=== PATIENT | male | born 1950 | race Caucasian/White ===

== ENCOUNTER 2016-10-26 23:05 | Emergency (ER) | payer BC ==
[2016-10-26 23:41] VITALS: BP 148/78
--- NOTE | 2016-10-28 07:42 | CR ---
DATE OF SERVICE: 10/26/16 CLINICAL DATA: Irregular heart beat. PA CHEST: Comparison is made to a prior exam dated 02/03/14. The heart size is normal. The lungs are clear. No pneumothorax. No pleural effusions. No areas of consolidation. IMPRESSION: No evidence of acute intrathoracic disease. [id number] [facility]
--- NOTE | 2016-11-08 01:43 | ER ---
HISTORY OF PRESENT ILLNESS: A 66-year-old male who comes to the emergency room with his with complaints of irregular heartbeat that he noticed just earlier today. The patient has not had any problems with chest pain, chest pressure, he does not feel sick. He has not been running a fever. He has no history of nausea. The patient states that he decided to come in for evaluation. He does have a history of coronary artery disease. He has history of stents being placed in the past and there is family history of coronary artery disease as well. The patient states that he has been active today and has not had any problems. OBJECTIVE: GENERAL APPEARANCE: The patient is awake and alert. No obvious distress. VITAL SIGNS: Reviewed. Blood pressure 148/78, he is afebrile, respirations are 16. HEENT: Ears, TMs are normal. Nares are patent. Oral mucous membranes are moist. Tonsils are not enlarged or injected. Pharynx not inflamed. NECK: Supple. LUNGS: Clear. CARDIAC: Heart sounds distinct, roughly every third beat, it seems to be dropped or irregular. There are no murmurs. ABDOMEN: Soft, nontender to palpation. SKIN: Warm and dry. LAB AND X-RAY: An EKG was obtained showing frequent PVCs. We compared this with previous EKGs and this is chronic in nature. Lab work including a CBC, comprehensive metabolic panel, and troponin are negative. Chest x-ray is normal. TREATMENT PLAN: I advised the patient to go home, continue with activity as tolerated. He should be taking a baby aspirin every day. His vital signs are good. If his symptoms do not resolve within the next few days further evaluation with his regular provider would be a good idea, recheck should be within a few days. The patient agrees with the treatment plan and has no further questions. DIAGNOSIS: Irregular heartbeat, chronic in nature. CRS/MODL /[id number]
== END 2016-10-27 00:25 | disposition home or self-care (01) ==
LOC: LB.ED 23:05
DX: I49.9 Cardiac arrhythmia, unspecified (principal)
CPT/HCPCS: 36415; 71010; 80053; 84484; 85025; 93005; 99285-25

== ENCOUNTER 2017-11-17 11:32 | Emergency (ER) | payer MEDICARE, BC ==
[2017-11-17] MEDS: Sodium Chloride 0.9% 10 ML Syringe FLUSH PRN (11:40)
[2017-11-17] MEDS: Aspirin 81 MG Tab.Chew PO ONE (11:47)
--- NOTE | 2017-11-17 11:58 | EDM.PDOC ---
ED HPI GENERAL MEDICAL PROBLEM - General Chief Complaint: Chest Pain Stated Complaint: chest pressure Time Seen by Provider: 11/17/17 11:45 Source of Information: Reports: Patient, RN - History of Present Illness INITIAL COMMENTS - FREE TEXT/NARRATIVE: 67 yr male presents with midsternal chest pain, started last night. States about 1 week ago was started on Metoprolol. States some chest pain last weekend too, when out of town at volleyball game. States some history of GI distress and did take an Omeprazole today. States pain is some better. States pain last night and didn't sleep well. Mid-Sternal Chest Pain Score (Numeric/FACES): 3 - Related Data Allergies Allergy/AdvReac Type Severity Reaction Status Date / Time No Known Allergies Allergy Verified 10/26/16 23:38 Home Meds: Home Meds Aspirin [Adult Low Dose Aspirin EC] 81 mg PO DAILY 02/03/14 [History] atorvaSTATin [Lipitor] 20 mg PO BEDTIME 02/03/14 [History] Metoprolol Succinate [Toprol XL] 25 mg PO DAILY 11/17/17 [History] Omeprazole Magnesium [Prilosec Otc] 20 mg PO DAILY #30 tablet. 11/17/17 [Rx] Past Medical History Cardiovascular History: Reports: CAD, High Cholesterol, Stents - Infectious Disease History Infectious Disease History: Reports: Chicken Pox - Past Surgical History Musculoskeletal Surgical History: Reports: Shoulder Surgery, Other (See Below) Social & Family History - Family History Family Medical History: Noncontributory - Tobacco Use Smoking Status *Q: Never Smoker Years of Tobacco use: 40 Used Tobacco, but Quit: Yes Month/Year Tobacco Last Used: 2011 Second Hand Smoke Exposure: No - Caffeine Use Caffeine Use: Reports: Soda, Tea - Alcohol Use Days Per Week of Alcohol Use: 0 - Recreational Drug Use Recreational Drug Use: No ED ROS GENERAL - Review of Systems Review Of Systems: See Below Constitutional: Reports: No Symptoms. Denies: Fever, Chills HEENT: Reports: No Symptoms. Denies: Vision Change Respiratory: Reports: Shortness of Breath Cardiovascular: Reports: Chest Pain. Denies: Dyspnea on Exertion, Edema GI/Abdominal: Reports: No Symptoms. Denies: Abdominal Pain Musculoskeletal: Reports: No Symptoms. Denies: Arm Pain, Back Pain Skin: Reports: No Symptoms Neurological: Reports: No Symptoms Psychiatric: Reports: No Symptoms ED EXAM, GENERAL - Physical Exam Exam: See Below Exam Limited By: No Limitations General Appearance: Alert, No Apparent Distress Nose: Normal Inspection Throat/Mouth: Normal Inspection, Normal Lips, No Airway Compromise Head: Atraumatic, Normocephalic Neck: Normal Inspection, Supple, Non-Tender Respiratory/Chest: No Respiratory Distress, Lungs Clear, Normal Breath Sounds Cardiovascular: Regular Rate, Rhythm, No Edema Peripheral Pulses: 2+: Radial (L), Radial (R) GI/Abdominal: Normal Bowel Sounds, Soft, Non-Tender, No Distention. No: Distended, Tender Extremities: Normal Inspection, Non-Tender, No Pedal Edema Neurological: Alert, Oriented, Normal Cognition Psychiatric: Normal Affect, Normal Mood Skin Exam: Warm, Dry, Normal Color Lymphatic: No Adenopathy Course - Vital Signs Last Recorded V/S: Last Vital Signs Temp 97.4 F 11/17/17 11:32 Pulse 54 L 11/17/17 12:19 Resp 18 11/17/17 12:19 BP 149/81 H 11/17/17 12:19 Pulse Ox 97 11/17/17 12:19 - Orders/Labs/Meds Orders: Active Orders 24 hr Category Date Time Status Cardiac Monitoring [RC] .As Directed Care 11/17/17 11:51 Active EKG Documentation Completion [RC] ASDIRECTED Care 11/17/17 11:52 Active Saline Lock Insert [OM.PC] Stat Oth 11/17/17 11:50 Ordered Labs: Laboratory Tests 11/17/17 11/17/17 Range/Units 11:50 11:50 WBC 6.5 (4.0-11.0) K/uL RBC 4.50 (4.50-6.50) M/uL Hgb 12.8 L (13.0-18.0) g/dL Hct 38.0 L (40.0-54.0) % MCV 84 (76-96) fL MCH 28.4 (27.0-32.0) pg MCHC 33.7 (31.0-35.0) g/dL RDW 13.2 (11.0-16.0) % Plt Count 164 D (150-400) K/uL MPV 10.9 H (6.0-10.0) fL Neut % (Auto) 63.0 (45.0-70.0) % Lymph % (Auto) 26.5 (20.0-40.0) % Otoe % (Auto) 8.0 (3.0-10.0) % Eos % (Auto) 2.0 (1.0-5.0) % Baso % (Auto) 0.5 (0.0-0.5) % Neut # (Auto) 4.07 (2.00-7.50) K/uL Lymph # (Auto) 1.71 (1.50-4.00) K/uL O[place]e # (Auto) 0.52 (0.20-0.80) K/uL Eos # (Auto) 0.13 (0.04-0.40) K/uL Baso # (Auto) 0.03 (0.02-0.10) K/uL Sodium 141 (136-145) mmol/L Potassium 3.7 (3.5-5.1) mmol/L Chloride 104 (98-107) mmol/L Carbon Dioxide 23.8 (21.0-32.0) mmol/L Anion Gap 16.9 H (5.0-15.0) mmol/L BUN 18 (8-26) mg/dL Creatinine 0.97 (0.70-1.30) mg/dL Est Cr Clr Drug Dosing 83.33 mL/min Estimated GFR (MDRD) > 60 (>60) MLS/MIN BUN/Creatinine Ratio 18.6 (6-25) Glucose 101 H (74-100) mg/dL Calcium 9.1 (8.5-10.1) mg/dL Total Bilirubin 0.6 D (0.0-1.0) mg/dL AST 20 (15-37) U/L ALT 35 (12-78) U/L Alkaline Phosphatase 61 (46-116) U/L Troponin I < 0.017 (0.000-0.060) ng/mL Total Protein 7.9 (6.4-8.2) g/dL Albumin 4.0 (3.4-5.0) g/dL Globulin 3.9 (2.2-4.2) g/dL Albumin/Globulin Ratio 1.0 (0.8-2.0) Meds: Medications Discontinued Medications Generic Name Dose Route Start Last Admin Trade Name Freq PRN Reason Stop Dose Admin Aspirin 324 mg 11/17/17 11:50 11/17/17 11:47 Aspirin PO 11/17/17 11:51 324 mg ONETIME ONE Administration Sodium Chloride 10 ml 11/17/17 11:50 11/17/17 11:40 Saline Flush FLUSH 10 ml ASDIRECTED PRN Administration Keep Vein Open - Re-Assessments/Exams Free Text/Narrative Re-Assessment/Exam: 11/17/17 12:[address] changes noted to EKG. NSR noted. Vital signs stable. Pain is level 2 in ER. States 4-5 on weekend and higher last night. No pain with palpation to chest, no abdominal pain. Consult w Dr Love. Waiting for lab results. If troponins negative and labs ok, will have pt F/U with PCP for possible EGD. 11/17/17 14:48 LE Reviewed of lab results: Troponins are negative. Reviewed lab results with patient. Will start Rx Omeprazole 20 mg PO daily for 2 weeks, empirically for acid reflux as pt states hx of this and did feel better after taking prilosec this am. F/U in clinic later this week with PCP. Reassured pt with this pain going on for several days and troponins are negative with NSR for EKG, likely not heart related. Pt discharged to self care and ambulatory without difficulty and no acute distress. Departure - Departure Time of Disposition: 12:39 Disposition: Home, Self-Care 01 Condition: Good Clinical Impression: Atypical chest pain Prescriptions: Omeprazole Magnesium [Prilosec Otc] 20 mg PO DAILY #30 tablet. Instructions: Nonspecific Chest Pain, [id number] Referrals: PCP,None [Primary Care Provider] - Forms: ED Department Discharge Additional Instructions: Discharge home. Prilosec daily, prescription sent over to pharmacy in [facility]. Follow up with your primary provider in a week. - My Orders Last 24 Hours: My Active Orders 11/17/17 11:50 Saline Lock Insert [OM.PC] Stat 11/17/17 11:51 Cardiac Monitoring [RC] .As Directed 11/17/17 11:52 EKG Documentation Completion [RC] ASDIRECTED - Assessment/Plan Last 24 Hours: My Active Orders 11/17/17 11:50 Saline Lock Insert [OM.PC] Stat 11/17/17 11:51 Cardiac Monitoring [RC] .As Directed 11/17/17 11:52 EKG Documentation Completion [RC] ASDIRECTED
[2017-11-17 12:20] VITALS: BP 149/81
== END 2017-11-17 12:42 | disposition home or self-care (01) ==
LOC: LB.ED 11:32
DX: R07.89 Other chest pain (principal); I25.10 Atherosclerotic heart disease of native coronary artery without angina pectoris; E78.00 Pure hypercholesterolemia, unspecified; Z95.5 Presence of coronary angioplasty implant and graft; Z79.82 Long term (current) use of aspirin; Z79.899 Other long term (current) drug therapy
CPT/HCPCS: 36415; 80053; 84484; 85025; 93005; 99285; A9270; J7050

== ENCOUNTER 2022-02-21 19:45 | Observation (INO) | payer MEDICARE ==
[2022-02-21] MEDS ORDERED: Sodium Chloride 0.9% 10 ML Syringe FLUSH PRN (20:09)
[2022-02-21] MEDS ORDERED: Sodium Chloride 0.9% 500 ML IV ONE (20:11)
[2022-02-21 21:00] LABS: ESTIMATED GFR 65 mL/min (>60)
[2022-02-21] MEDS ORDERED: Ondansetron 4 MG/2 ML SDV IV PRN (21:58)
[2022-02-21] MEDS ORDERED: Potassium Chloride Riders 10 MEQ in Premix Bag 1 BAG IV SCH (22:00)
[2022-02-21] MEDS ORDERED: Potassium Chloride Riders 50 ML ONE (22:04)
[2022-02-21] MEDS: Amoxicillin/Clavulanate K 875-125 MG Tab PO SCH (22:06)
[2022-02-21] MEDS ORDERED: Amoxicillin 500 MG Cap PO SCH (22:15)
[2022-02-21] MEDS ORDERED: Amoxicillin/Clavulanate K 875-125 MG Tab ONE (22:18)
[2022-02-21] MEDS ORDERED: Potassium Chloride 20 MEQ Tab.ER ONE (22:36)
[2022-02-21] MEDS: Potassium Chloride 10% 20 MEQ/15 ML Soln 15 ML UD Cup PO SCH (22:45)
[2022-02-22] MEDS: Potassium Chloride 10% 20 MEQ/15 ML Soln 15 ML UD Cup PO SCH ×3 (02:14→11:25)
[2022-02-22] MEDS: Amoxicillin/Clavulanate K 875-125 MG Tab PO SCH (08:16)
[2022-02-22] MEDS: Acetaminophen 325 MG Tab PO PRN ×2 (08:16→12:57)
[2022-02-22 16:12] VITALS: BP 131/77; PULSE 82
== END 2022-02-22 17:00 | disposition home or self-care (01) ==
LOC: LB.ED 19:45 → LB.MS 21:58 → UNDOADMOB 02-22 00:15 → LB.MS 02-22 00:15
PROVIDERS: ADMIT Physician Assistant; ATTEND Physician Assistant
DX: H65.113 Acute and subacute allergic otitis media (mucoid) (sanguinous) (serous), bilateral (principal); K52.9 Noninfective gastroenteritis and colitis, unspecified; E87.6 Hypokalemia; A08.4 Viral intestinal infection, unspecified; I25.10 Atherosclerotic heart disease of native coronary artery without angina pectoris; E78.00 Pure hypercholesterolemia, unspecified; I45.4 Nonspecific intraventricular block; Z95.5 Presence of coronary angioplasty implant and graft; Z87.891 Personal history of nicotine dependence; Z79.82 Long term (current) use of aspirin; Z79.02 Long term (current) use of antithrombotics/antiplatelets; Z79.899 Other long term (current) drug therapy; Z20.822 Contact with and (suspected) exposure to COVID-19; Z98.890 Other specified postprocedural states
CPT/HCPCS: 36415; 71045; 80048; 81001; 83605; 83735; 84132; 85025; 87804; 87804-59; 93005; 93010; 99217; 99218; 99284; A9270-GY; G0378; J3480; J3490; J7040; U0002

== ENCOUNTER 2023-03-08 14:36 | Emergency (ER) | payer MEDICARE ==
[2023-03-08] MEDS ORDERED: diazePAM 5 MG/ML MDV IM ONE (15:22)
[2023-03-08] MEDS ORDERED: diazePAM 5 MG/ML MDV ONE (15:28)
[2023-03-08] MEDS ORDERED: Ketorolac 60 MG/2 ML SDV IM ONE (15:42)
[2023-03-08] MEDS ORDERED: Orphenadrine 60 MG/2 ML Inj IM ONE (15:43)
[2023-03-08] MEDS ORDERED: Cyclobenzaprine 10 MG Tab ONE (16:30)
== END 2023-03-08 16:59 | disposition home or self-care (01) ==
LOC: LB.ED 14:36
DX: S39.012A Strain of muscle, fascia and tendon of lower back, initial encounter (principal); I25.10 Atherosclerotic heart disease of native coronary artery without angina pectoris; E78.00 Pure hypercholesterolemia, unspecified; Z79.82 Long term (current) use of aspirin; Z79.899 Other long term (current) drug therapy; X50.9XXA Other and unspecified overexertion or strenuous movements or postures, initial encounter
CPT/HCPCS: 72100; 96372; 99283; A9270; J1885; J2360; J3360

== ENCOUNTER 2023-03-17 09:44 | Emergency (ER) | payer MEDICARE ==
[2023-03-17] MEDS ORDERED: HYDROmorphone 2 MG/ML Syringe IVPUSH ONE (10:05)
[2023-03-17] MEDS ORDERED: Aspirin 81 MG Tab.Chew PO ONE (10:08)
[2023-03-17] MEDS ORDERED: Aspirin 325 MG Tab.EC PO ONE (10:09)
[2023-03-17 10:13] LABS: BASOPHILS ABSOLUTE AUTO 0.03 K/uL (0.02-0.10); BASOPHILS PERCENT AUTO 0.3 % (0.0-0.5); EOSINOPHILS ABSOLUTE AUTO 0.18 K/uL (0.04-0.40); EOSINOPHILS PERCENT AUTO 1.9 % (1.0-5.0); HEMATOCRIT 40.2 % (40.0-54.0); HEMOGLOBIN 13.6 g/dL (13.0-18.0); LYMPHOCYTES ABSOLUTE AUTO 1.58 K/uL (1.50-4.00); LYMPHOCYTES PERCENT AUTO 16.4 % (20.0-40.0); MEAN CORPUSCULAR HEMOGLOBIN 29.1 pg (27.0-32.0); MEAN CORPUSCULAR HGB CONC 33.8 g/dL (31.0-35.0); MEAN CORPUSCULAR VOLUME 86 fL (76-96); MEAN PLATELET VOLUME 9.5 fL (6.0-10.0); MONOCYTES ABSOLUTE AUTO 0.88 K/uL (0.20-0.80); MONOCYTES PERCENT AUTO 9.1 % (3.0-10.0); NEUTROPHILS ABSOLUTE AUTO 6.97 K/uL (2.00-7.50); NEUTROPHILS PERCENT AUTO 72.3 % (45.0-70.0); PLATELET COUNT,PLT 224 K/uL (150-400); RED BLOOD CELL COUNT 4.67 M/uL (4.50-6.50); RED CELL DISTRIBUTION WIDTH 12.9 % (11.0-16.0); WHITE BLOOD CELL COUNT,WBC 9.6 K/uL (4.0-11.0)
[2023-03-17 10:35] LABS: INR 0.9 (1.0-3.5); PTT,PARTIAL THROMBOPLSTIN TIME 25.5 SECONDS (24.4-33.2)
[2023-03-17 10:36] LABS: PROTHROMBIN TIME 9.5 sec (9.0-11.5)
[2023-03-17 10:44] LABS: A/G RATIO 0.8 (0.8-2.0); ALBUMIN 3.5 g/dL (3.4-5.0); ANION GAP 14.2 mmol/L (5.0-15.0); BILIRUBIN TOTAL 0.4 mg/dL (0.0-1.0); BUN/CREATININE RATIO 27.1 (6-25); CALCIUM 9.3 mg/dL (8.5-10.1); CARBON DIOXIDE,CO2 29.4 mmol/L (21.0-32.0); CREATININE 0.96 mg/dL (0.70-1.30); EST CRCL DRUG DOSING (CG) 78.59 mL/min; POTASSIUM,K 3.6 mmol/L (3.5-5.1); PROTEIN TOTAL,TP 7.7 g/dL (6.4-8.2); TROPONIN I HIGH SENSITIVITY 7.2 pg/ml (<=60.4)
[2023-03-17] MEDS ORDERED: Ketorolac 30 MG/ML SDV IVPUSH ONE (10:49)
[2023-03-17] MEDS ORDERED: Ketorolac 30 MG/ML SDV ONE (11:26)
[2023-03-17] MEDS ORDERED: Iopamidol 612 MG/ML 100 ML Bottle IV SCH (12:00)
[2023-03-17] MEDS ORDERED: Sodium Chloride 0.9% 50 ML SDV FLUSH ONE (12:00)
[2023-03-17] MEDS ORDERED: Heparin Sodium 5,000 Units/ML Vial IVPUSH ONE (12:02)
[2023-03-17 12:14] VITALS: BP 131/79; PULSE 65
[2023-03-17] MEDS ORDERED: Heparin Sodium/D5W 25,000 UNITS/500 ML BAG IV SCH (12:15)
[2023-03-17] MEDS ORDERED: Heparin Sodium/D5W 500 ML ONE (12:18)
[2023-03-17] MEDS ORDERED: Heparin Sodium 1,000 Units/ML 10 ML MDV ONE (12:18)
[2023-03-17] MEDS: Heparin Sodium 1,000 Units/ML 10 ML MDV SUBCUT SCH ×2 (12:23→12:31)
== END 2023-03-17 16:12 ==
LOC: LB.ED 09:44
DX: I26.99 Other pulmonary embolism without acute cor pulmonale (principal); I25.10 Atherosclerotic heart disease of native coronary artery without angina pectoris; Z79.82 Long term (current) use of aspirin
CPT/HCPCS: 36415; 71045; 71260; 80053; 83735; 84484; 85025; 85379; 85610; 85730; 93005; 93010; 96365; 96366; 96375; 96376; 99285; 99285-25; A9270-GY; J1170; J1644; J1885; J3490; Q9967